=== PATIENT | female | born 1965 | race Hispanic/Latino ===

== ENCOUNTER 2017-06-22 20:21 | Emergency (ER) | payer SELFPAY ==
[2017-06-22] MEDS ORDERED: METOCLOPRAMIDE 10 MG TABLET ONE (20:25)
[2017-06-22] MEDS ORDERED: ACETAMINOPHEN 325 MG TAB ONE (20:26)
[2017-06-22 20:40] LABS: APPEARANCE,URINE Clear (CLEAR); BILIRUBIN,URINE Negative (NEGATIVE); COLOR,URINE Yellow (YELLOW); GLUCOSE, URINE (UA) Negative (NEGATIVE); KETONES,URINE Trace mg/dL (NEGATIVE); LEUKOCYTE ESTERASE ,URINE Trace (NEGATIVE); NITRATE,URINE Negative (NEGATIVE); OCCULT BLOOD,URINE Large (NEGATIVE); PH,URINE 5.5 (5.0-8.0); PROTEIN,URINE Negative (NEGATIVE)
[2017-06-22] MEDS ORDERED: IBUPROFEN 200 MG TAB ONE (20:41)
[2017-06-22] MEDS ORDERED: IBUPROFEN 400 MG TABLET ONE (20:41)
[2017-06-22 20:51] LABS: BACTERIA,URINE Few /HPF (None Seen); RBC,URINE None Seen /HPF (0-1); WBC,URINE 0-1 /HPF (0-1)
== END 2017-06-22 23:05 | disposition home or self-care (01) ==
LOC: EDH 20:21
DX: J09.X2 Influenza due to identified novel influenza A virus with other respiratory manifestations (principal)
CPT/HCPCS: 81001; 87804